=== PATIENT | male | born 1950 | race Caucasian/White ===

== ENCOUNTER 2018-03-02 01:33 | Emergency (ER) | payer MEDICARE, SELFPAY ==
[2018-03-02 01:37] VITALS: BP 145/87; PULSE 111; RESP 28; TEMP 36.6; O2SAT 96; BMI 27.3
--- NOTE | 2018-03-02 03:58 | ED.DEP ---
ED Disposition - Plan for ED Patient: Chief Complaint: Lower Extremity Injury Instructions: ED [facility] Cold Injury Referrals: Care Physician,No Primary [Primary Care Provider] - Erica Fontana [NON-STAFF] -
--- NOTE | 2018-03-02 04:01 | ED.VISSUMM ---
- ER Visit Summary Date of Service: 03/02/18 Chief Complaint: Cold hands and feet History of Present Illness: The patient is a 68 M presenting with cold hands and feet. He was concerned about possibility of frostbite. He is homeless. He states that his shoes were wet. His tetanus is up-to-date. Denies chest pain or shortness of breath. Denies fever. Denies other complaints. Physical Examination: Vitals are stable. Patient is afebrile. Alert no acute distress. HEENT exam is unremarkable. Neck is supple. Lungs are clear and equal bilaterally. Heart is regular rate and rhythm. Abdomen is soft nontender nondistended. Extremities are unremarkable. No signs of infection. Normal cap refill. Normal distal pulses. Skin is warm and dry. No focal neurologic deficit. Remainder of exam is unremarkable. Emergency Department Course and Treatment: Patient given Naprosyn x1 in the ED. His symptoms are completely resolved with warming. He is advised to follow up with [facility]. Advised return to ED for worsening complaints. Disposition: Discharge Impression: Cold exposure This note was generated with [employer] dictation software. It may contain incorrect words, spelling, and punctuation that were not noted in review of the chart prior to signing ED Disposition - Plan for ED Patient: Chief Complaint: Lower Extremity Injury Instructions: ED [facility] Cold Injury Referrals: Erica Fontana [NON-STAFF] - Care Physician,No Primary [Primary Care Provider] -
[2018-03-02] MEDS: Naproxen 500 MG Tablet PO (04:23)
[2018-03-02 04:24] VITALS: BP 121/89; PULSE 82; RESP 18; O2SAT 96
--- NOTE | 2018-03-02 09:40 | CM.ED ---
Social Work Note Referrals from nursing for 3 males that have presented to the ED for the past 3 days d/t homelessness and frigid weather. Introduced self and role at [facility]. Pt is accompanied by his two sons, Breezy and Santiago. According to Santiago they were staying at [facility] on [address] which used to be an old trailer park. States that they fell behind on rent and are now kicked out. Care broke down and it would cost about $50 to fix it and that if they did not get it today it would be towed. Inform that unfortunately this is not something the hospital can aide with and encourage them to go to [facility] and [employer] for resources. Educated to [facility] the usp in [place]. They report that they have been there in the past and will not return. Express concern as it is winter months and cold, and they do not have usp. They continue to state they would not go there. They are not allowed back at [facility] per their report. Provide with information on food pantries, and soup [employer], [employer] and [employer]. They request a ride back to their makeshift usp near [facility] [place] [id number]. Reinforced that they cannot continue to return to the ED as it is not a usp, and that calling the squad for non-emergent conditions is a crime that they could be punished for if pursued by law enforcement. Understanding expressed. Santiago states that he did fill out an application at [employer] [facility] yesterday, there is an open interview tomorrow and he could start as early as Friday. Placed call to Darcy at [facility] who confirms they are not allowed to return. States that for confidentiality reasons she cannot share why, but reaffirms they are not to return. Placed call to marketing and transportation to above address was provided at 1030. No further needs at this time. PLAN: Return to makeshift usp after declining provided options. To seek assistance from known community resources. DICK Johnson, [employer]
== END 2018-03-02 05:00 | disposition home or self-care (01) ==
PROVIDERS: Emergency Provider Emergency Medicine
DX: T69.9XXA Effect of reduced temperature, unspecified, initial encounter (principal); X31.XXXA Exposure to excessive natural cold, initial encounter; Z59.0 Homelessness; Z72.0 Tobacco use
CPT/HCPCS: 99285